=== PATIENT | female | born 1940 | race Caucasian/White ===

== ENCOUNTER 2021-09-11 06:16 | Emergency (ER) | payer MEDICARE ==
[~2021-09-11] VITALS: Ht 160 cm; Wt 73.5 kg
[~2021-09-11 06:16] MED LIST: AIRDUO RESPICL1 EAC4 INH; ALPR.25 PO; ANTIFUNGAL POWD71 GM TOP; CLOP75 PO; Carvedilol12.5 MG PO; EUTHYROX50 MCG PO; HYDRA25 PO; IBU600 MG PO; IPRAT-ALBUT 0.5-3 ML INH; LOSA25 PO; MASOPHEN325 M3 PO
[2021-09-11 07:34] LABS: BASOPHILS ABSOLUTE AUTO 0.02 K/mm3 (0.00-0.23); BASOPHILS PERCENT AUTO 0 % (0-2); EOSINOPHILS ABSOLUTE AUTO 0.17 K/mm3 (0.00-0.68); EOSINOPHILS PERCENT AUTO 1 % (0-6); Hematocrit 39.6 % (33.0-51.0); Hemoglobin 13.3 g/dL (11.5-16.0); IMMATURE GRAN ABSOLUTE AUTO 0.05 K/mm3 (0.00-0.10); IMMATURE GRAN PERCENT AUTO 0 % (0-1); LYMPHOCYTES ABSOLUTE AUTO 1.94 K/mm3 (0.84-5.20); LYMPHOCYTES PERCENT AUTO 16 % (21-46); MONOCYTES ABSOLUTE AUTO 0.64 K/mm3 (0.16-1.47); MONOCYTES PERCENT AUTO 5 % (4-13); Mean Corpuscular HGB 29.5 pg (26.0-34.0); Mean Corpuscular HGB Conc 33.6 g/dL (31.5-36.5); Mean Corpuscular Volume 88 fL (80-100); Mean Platelet Volume 11.1 fL (9.1-12.4); NEUTROPHILS ABSOLUTE AUTO 9.18 K/mm3 (1.96-9.15); NEUTROPHILS PERCENT AUTO 77 % (41-73); Platelet Count 256 K/mm3 (150-400); RDW Coefficient Variation 14.2 % (11.7-14.2); RDW Standard Deviation 45.8 fL (35.1-46.3); Red Blood Cell Count 4.51 M/mm3 (3.80-5.20)
[2021-09-11 07:46] LABS: Albumin/Globulin Ratio 0.9 (0.8-1.8); Bilirubin, Total 0.6 mg/dL (0.1-1.0); Bun/Creatinine Ratio 15.3 (12.0-20.0); Calcium, Blood 8.7 mg/dL (8.5-10.1); Creatinine, Blood 1.57 mg/dL (0.40-1.00); Globulin, Blood 3.5 g/dL (2.2-4.0); Potassium, Blood 3.8 mmol/L (3.5-5.5); Total Protein, Blood 6.5 g/dL (6.4-8.2)
[2021-09-11] MEDS ORDERED: Avidoxy100 MG PO (08:58)
[2021-09-11] MEDS ORDERED: Amoxicillin500 MG PO (08:58)
[2021-09-11] MEDS ORDERED: LOSA50 PO (08:59)
[2021-09-11] MEDS ORDERED: BREO ELLIPTA 21 EAC1 INH (09:00)
[2021-09-11] MEDS ORDERED: LOVASTATIN40 MG PO (09:01)
[2021-09-11] MEDS ORDERED: HYDCHL12.5 PO (09:01)
[2021-09-11] MEDS ORDERED: CEFD300 PO (10:42)
[2021-09-11] MEDS ORDERED: CEFP200 PO (10:42)
[2021-09-11] MEDS ORDERED: AZIT250 PO (10:42)
[2021-09-11 10:54] LABS: Source, Urine Clean Catch
[2021-09-11 11:07] LABS: Appearance, Urine Hazy (Clear); Bilirubin, Urine Neg (Neg); Blood, Urine 1+ (Neg); Color, Urine Yellow (P-Yellow); Glucose Qualitative, Urine Neg (Neg); Ketones, Urine Neg (Neg); Leukocyte Esterase, Urine 3+ (Neg); Nitrite, Urine Neg (Neg); Protein, Urine 1+ (Neg); Specific Gravity, Urine 1.015 (1.003-1.022); Urobilinogen, Urine NORM (Normal)
[2021-09-11 11:18] LABS: Bacteria Many /hpf; Squamous Epithelial Cells Mod /hpf (Few); White Blood Cells, Urine 25-50 /hpf (0-5)
== END 2021-09-11 12:50 | disposition home or self-care (01) ==
LOC: ER 06:16
PROVIDERS: Emergency Medicine
DX: J96.21 Acute and chronic respiratory failure with hypoxia (principal); J44.9 Chronic obstructive pulmonary disease, unspecified; J18.9 Pneumonia, unspecified organism; E03.9 Hypothyroidism, unspecified; I12.9 Hypertensive chronic kidney disease with stage 1 through stage 4 chronic kidney disease, or unspecified chronic kidney disease; N18.30 Chronic kidney disease, stage 3 unspecified; U07.1 COVID-19; Z79.899 Other long term (current) drug therapy; Z99.81 Dependence on supplemental oxygen
CPT/HCPCS: 36415; 71045; 80053; 81001; 83605; 85025; 93005; 93010; J0456; J0696; J7030; J7050